=== PATIENT | male | born 1985 | race Caucasian/White ===

== ENCOUNTER → 2020-10-18 | Outpatient (CLI) | payer OTHER ==
[~2020-10-18] MED LIST: ASPIRIN CHEWABL81 MG PO
== END ==
LOC: EXRD 08:58
DX: R10.11 Right upper quadrant pain (principal); K76.0 Fatty (change of) liver, not elsewhere classified
CPT/HCPCS: 76705

== ENCOUNTER → 2021-06-17 | Outpatient (CLI) | payer OTHER | LOC: RAD 17:56 | DX: R06.02 Shortness of breath (principal) | CPT/HCPCS: 71046 ==